=== PATIENT | male | born 1945 | race Caucasian/White ===

== ENCOUNTER 2017-02-12 12:04 | Emergency (ER) | payer OTHER ==
--- NOTE | 2017-02-12 12:15 | PDOC ---
History of Present Illness - General Chief Complaint: Laceration Stated Complaint: RT EYEBROW LACERATION Time Seen by Provider: 02/12/17 12:12 - History of Present Illness Initial Comments: 02/12/17 13:53 Chief complaint: Laceration History of present illness: Patient bumped into a door, sustaining a laceration above his right eye. No loss of consciousness. No headache, nausea, visual or focal neurologic symptoms or unsteady gait. No pain at the site Review of systems: As above. In addition, no chest pain, shortness of breath, abdominal pain, vomiting or diarrhea. Past medical history: No active medical problems Social/family history reviewed and noncontributory Physical exam: Alert and oriented well-developed well-nourished no acute distress cheerful and cooperative Afebrile, vital signs normal 1.5 cm laceration oriented vertically, beginning on the forehead and extending to the middle third of the eyebrow on the right side. Superficial, consisting only of skin and dermis. No swelling, orbital deformity, or tenderness to palpation. Conjunctiva clear. Pupil round and reactive 4 cm. Fundus benign. Cornea clear. EOMs full without diplopia. Visual maxwell intact confrontation ENT clear Neck supple without bruit mass or nodes. No point tenderness or deformity and full range of motion without pain Chest clear. No chest wall rib cage tenderness deformity CV regular without murmur or gallop Abdomen benign Neurological C2 to 12 intact. Strength full and symmetric. No focal sensory or motor deficits. Gait stable. Impression: Superficial laceration of the forehead and right eyebrow, no orbital involvement, no injury to the eye Plan: Repair with skin adhesive. Past History - Past Medical History Allergies/Adverse Reactions: Allergies Allergy/AdvReac Type Severity Reaction Status Date / Time No Known Allergies Allergy Verified 02/12/17 12:07 Home Medications: Ambulatory Orders Aspirin [ASA -] 81 mg PO DAILY 02/12/17 Disorders: Yes (KIDNEY STONES) - Suicide/Smoking/Psychosocial Hx Smoking History: Never smoked Hx Alcohol Use: No Drug/Substance Use Hx: No Substance Use Type: None Medical Decision Making - Medical Decision Making 02/12/17 13:57 Procedure note: Repair forehead laceration Wound was scrubbed and irrigated with normal saline, dried, explored Superficial. Edges well approximated with skin adhesive. Wound care discussed with the patient. Follow-up as directed. Fully ambulatory and in no pain, with no neurologic symptoms, and in no distress upon discharge *DC/Admit/Observation/Transfer Diagnosis at time of Disposition: Laceration of right eyebrow Qualifiers: Encounter type: initial encounter Qualified Code(s): S01.111A - Laceration without foreign body of right eyelid and periocular area, initial encounter - Discharge Dispostion Disposition: HOME Condition at time of disposition: Improved Admit: No - Referrals Referrals: Jelani Alatorer MD [Staff Physician] - - Patient Instructions Printed Discharge Instructions: DI for Laceration Repair With Dermabond - Post Discharge Activity
[2017-02-12 12:36] VITALS: BP 129/78; PULSE 73; TEMP 98; BMI 26.2
== END 2017-02-12 12:42 | disposition home or self-care (01) ==
LOC: FER 12:04
PROC: 08QNXZZ Repair Right Upper Eyelid, External Approach (ICD-10-PCS; principal; 2017-02-12)
DX: S01.111A Laceration without foreign body of right eyelid and periocular area, initial encounter (principal); W22.8XXA Striking against or struck by other objects, initial encounter; Y93.89 Activity, other specified; Y92.9 Unspecified place or not applicable; Z79.82 Long term (current) use of aspirin; Z87.442 Personal history of urinary calculi
CPT/HCPCS: 99282-25